=== PATIENT | female | born 1985 | race Caucasian/White ===

== ENCOUNTER 2019-07-07 13:05 | Inpatient (IN) | payer BC ==
[~2019-07-07] VITALS: Ht 152.4 cm; Wt 61.2 kg
[~2019-07-07 13:05] MED LIST: HYDR25SU18 RC; POLY17PO29 PO; TRAM1TAB4 PO
[2019-07-07] MEDS ORDERED: DIPHTH,PERTUSS(ACELL),TET TOX 0.5 ML DISP.SYRIN. VAX IM ONE (13:45)
[2019-07-07] MEDS ORDERED: IV NORMAL SALINE 1000ML BAG 1,000 ML IV ONE (13:45)
[2019-07-07 14:03] LABS: BILIRUBIN,URINE NEGATIVE (NEG); CLARITY,URINE CLEAR; COLOR,URINE YELLOW; NITRITE,URINE POSITIVE (NEG); PROTEIN,URINE NEGATIVE (NEG-TRACE); UROBILINOGEN,URINE 0.2 mg/dL (0.2 mg/dL)
--- NOTE | 2019-07-07 14:03 | EKG ---
[facility] [address] [place] [address] Test Date: 2019-07-07 Test Time: 13:58:27 Pat Name: TIO SIMS Department: Room: Gender: F [employer]igator: : 1985 Requested By: ARANZA OROZCO Order Number: [id number] Reading MD: Measurements Intervals [place] Rate: 86 P: 54 [place]: 138 QRS: 41 QRSD: 84 T: 45 QT: 352 QTc: 424 Interpretive Statements SINUS RHYTHM NORMAL ECG No previous ECG available for comparison
[2019-07-07 14:08] LABS: BARBITURATES NEG (NEG); BENZODIAZEPINES NEG (NEG); CANNABINOIDS NEG (NEG); COCAINE NEG (NEG); METHADONE NEG (NEG); OPIATES NEG (NEG); PHENCYCLIDINE NEG (NEG)
[2019-07-07 14:09] LABS: AMPHETAMINE/METHAMPHETAMINE POS (NEG)
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
[2019-07-07 14:16] LABS: BASO % 0 % (0-3); EOS % 0 % (0-3); HEMATOCRIT 36.7 % (36.0-47.0); HEMOGLOBIN 12.6 g/dL (12.0-15.5); LYMPH # 1.3 x10^3/uL (1.0-4.8); LYMPH % 19 % (24-48); MEAN CORPUSCULAR HEMOGLOBIN 31 pg (25-35); MEAN CORPUSCULAR HGB CONC 34 g/dL (31-37); MEAN CORPUSCULAR VOLUME 89 fL (79-100); MONO # 0.7 x10^3/uL (0.0-1.1); MONO % 9 % (0-9); NEUT # 5.2 x10^3/uL (1.8-7.7); NEUT % 72 % (31-73); PLATELET COUNT 182 x10^3/uL (140-400); RED BLOOD COUNT 4.11 x10^6/uL (3.50-5.40); RED CELL DISTRIBUTION WIDTH 13.2 % (11.5-14.5); WHITE BLOOD COUNT 7.3 x10^3/uL (4.0-11.0)
[2019-07-07 14:19] LABS: BACTERIA,URINE MANY /HPF (0-FEW); RBC,URINE OCC /HPF (0-2); SQUAMOUS EPITHELIAL CELL,UR OCC /LPF
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
[2019-07-07 14:26] LABS: PROTHROMBIN TIME PATIENT 12.6 SEC (11.7-14.0)
[2019-07-07 14:30] LABS: U PREG PATIENT NEGATIVE (NEG)
[2019-07-07 14:36] LABS: CALCIUM 8.7 mg/dL (8.5-10.1); CREATININE 0.8 mg/dL (0.6-1.0); GFR 81.6; POTASSIUM 3.4 mmol/L (3.5-5.1)
[2019-07-07 14:42] LABS: ALBUMIN 3.5 g/dL (3.4-5.0); ALBUMIN/GLOBULIN RATIO 1.1 (1.0-1.7); TOTAL BILIRUBIN 0.3 mg/dL (0.2-1.0); TOTAL PROTEIN 6.7 g/dL (6.4-8.2)
[2019-07-07] MEDS ORDERED: IOHEXOL 350 MG/ML 100 ML VIAL. IV ONE (14:45)
[2019-07-07] MEDS ORDERED: LIDOCAINE 1% Multi-Dose 20 ML VIAL. INJ ONE (15:00)
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
[2019-07-07] MEDS ORDERED: HYDROcodone/APAP 5/325MG 1 TAB TABLET PO ONE (16:15)
[2019-07-07] MEDS ORDERED: NEOMY/BACITR/POLYMYXIN OINT PACKET. TP ONE (16:30)
[2019-07-07] MEDS ORDERED: HYDR-3164 PO (16:33)
[2019-07-07] MEDS ORDERED: CEPH-264 PO (16:33)
[2019-07-07] MEDS ORDERED: cefTRIAXone IV Push 1 GM VIAL. IVP ONE (17:00)
[2019-07-07] MEDS ORDERED: ACETAMINOPHEN 325 MG TABLET. PO PRN (17:00)
[2019-07-07] MEDS ORDERED: fentaNYL PF VIAL 100 MCG/2 ML VIAL IV PRN (17:00)
[2019-07-07] MEDS ORDERED: ONDANSETRON PF 4 MG/2 ML VIAL. IV PRN (17:00)
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
[2019-07-07 23:56] VITALS: BP 101/43
[2019-07-08 03:00] VITALS: BP 87/40
[2019-07-08] MEDS: HYDROcodone/APAP 5/325MG 1 TAB TABLET PO PRN ×3 (03:06→11:33)
[2019-07-08 03:07] VITALS: BP 91/52
[2019-07-08 07:00] VITALS: BP 89/45
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
[2019-07-08 11:00] VITALS: BP 95/48
[2019-07-08] MEDS ORDERED: AMOX1TAB61 PO (11:21)
[2019-07-08] MEDS ORDERED: HYDR-3164 PO (11:22)
--- NOTE | 2019-07-08 12:25 | NUR ---
Patient discharged to home with family care. Patient received discharge teaching and verbalized understanding.
--- NOTE | 2019-07-08 14:07 | NUR ---
SS following for discharge planning. SS reviewed pt chart. Pt is from home and is currently on room air. Discharge order on the chart for home with self care.
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
== END 2019-07-08 14:10 | disposition home or self-care (01) | DRG 580 ==
LOC: ER 13:05 → 6 SOUTH 16:47
PROVIDERS: ADMIT Internal Medicine; ATTEND Internal Medicine
PROC: 0WQFXZZ Repair Abdominal Wall, External Approach (ICD-10-PCS; principal; 2019-07-07)
DX: S21.119A Laceration without foreign body of unspecified front wall of thorax without penetration into thoracic cavity, initial encounter (principal); J90 Pleural effusion, not elsewhere classified; S22.32XA Fracture of one rib, left side, initial encounter for closed fracture; N39.0 Urinary tract infection, site not specified; S27.0XXA Traumatic pneumothorax, initial encounter; S31.111A Laceration without foreign body of abdominal wall, left upper quadrant without penetration into peritoneal cavity, initial encounter; X99.9XXA Assault by unspecified sharp object, initial encounter; Z82.49 Family history of ischemic heart disease and other diseases of the circulatory system; Z98.51 Tubal ligation status; F32.9 Major depressive disorder, single episode, unspecified
CPT/HCPCS: 12001; 36415; 71046; 71275; 74175; 80053; 80307; 81001; 81025; 85025; 85610; 87086; 87186; 90471; 90715; 93005; 96361; 96374; 96375; G0480; J0696; J3010; J7030; Q9967; 99285-25; G0378

== ENCOUNTER 2019-07-13 20:12 | Emergency (ER) | payer BC ==
[~2019-07-13] VITALS: Ht 152.4 cm; Wt 59.0 kg
[~2019-07-13 20:12] MED LIST changes: +AMOX1TAB61 PO; +CEPH-264 PO; +HYDR-3164 PO
[2019-07-13 20:20] VITALS: BP 99/52
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
== END 2019-07-13 21:30 | disposition home or self-care (01) ==
LOC: ER 20:12
DX: S22.32XA Fracture of one rib, left side, initial encounter for closed fracture (principal); R10.9 Unspecified abdominal pain; F32.9 Major depressive disorder, single episode, unspecified; F12.90 Cannabis use, unspecified, uncomplicated; Z98.51 Tubal ligation status; X58.XXXA Exposure to other specified factors, initial encounter; Y93.89 Activity, other specified; Y92.89 Other specified places as the place of occurrence of the external cause; Y99.8 Other external cause status
CPT/HCPCS: 81025; 99282